=== PATIENT | male | born 1960 | race Hispanic/Latino ===

== ENCOUNTER 2017-03-20 16:32 | Outpatient (CLI) | payer OTHER ==
[2017-03-20 17:10] LABS: Blood Urea Nitrogen 15 mg/dL (9-20)
[2017-03-20] MEDS ORDERED: NACL ONE (18:34)
--- NOTE | 2017-03-20 19:28 | Cat Scan Report ---
FINAL REPORT EXAM: CT CHEST WO CON HISTORY: 6mm nodule on upper lobe TECHNIQUE: Standard unenhanced CT of the chest at 2.5 mm axial increments. Coronal and sagittal reconstruction was also obtained. Contrast: Oral contrast is noted within loops of the upper abdomen PRIORS: None. FINDINGS: In the left upper lobe, there are several pleural based plaques anterior and laterally in position. Only 1 of these has a small area of calcification within it. There are also a few smaller thinner plaques along the posterior aspect of the left base and along the left hemidiaphragm. Possibility of asbestos exposure should be considered and is most likely given the positioning of the plaques. However, due to the lack of calcification, other etiologies including neoplasm are not excluded entirely. There is a 5.5 mm uncalcified right middle lobe nodule (axial image 49) identified along the minor fissure anteriorly, likely a small fissural lymph node. Otherwise, the lung parenchyma are expanded and clear with no evidence for parenchymal infiltrates, vascular congestion, pleural effusion, or pneumothorax. There is no evidence for mediastinal, hilar, or axillary adenopathy. The esophagus is collapsed. The trachea is midline. Cardiovascular structures are within normal limits. Cardiac size and aorta are normal. Images through the lung bases include upper abdomen which show a low-density 3.6 x 3.1 cm cyst in the lower pole right kidney. There is a smaller adjacent low-density cyst in the midpole of the right kidney. This latter cysts contains focal calcification along the wall. Gallbladder has been surgically removed. Bony structures show no focal abnormalities. No evidence for bony fracture is seen. IMPRESSION: 1. no acute abnormality identified in the chest. 2. Uncalcified nodule in the right middle lobe along the anterior minor fissure. This is likely a small fissural lymph node. 3. Numerous pleural based plaques in the left upper and lower lobes and along the left hemidiaphragm. Most of these are uncalcified. Given the distribution, findings are most typical of asbestos exposure. However, due to the lack of calcification, other etiologies including mesothelial a are not excluded. A PET scan may be of further help to determine hypermetabolic activity within these plaques. 4. Low-density cysts in the right kidney
--- NOTE | 2017-03-20 19:47 | Cat Scan Report ---
FINAL REPORT EXAM: CT ABDOMEN PELVIS W CON HISTORY: Abdominal pain TECHNIQUE: Standard enhanced CT of the abdomen and pelvis. Delayed images through the kidneys and bladder were obtained. Coronal and sagittal reconstruction was also performed. Contrast: 100 mL Omnipaque 300 given IV. Oral contrast given PRIORS: CT chest 03/20/2017 FINDINGS: Within the abdomen, the liver, spleen, pancreas, gallbladder, adrenal glands, and left kidney are unremarkable. There is a 3.3 x 2.9 cm low-density cyst in the lower pole right kidney. 1.7 x 2.0 cm cyst in the midpole right kidney is seen. On the prior CT chest, the smaller cyst has focal punctate calcification along the wall. Neither of these cysts change density compared to the previous unenhanced CT chest. Therefore, these are likely benign. No evidence for retroperitoneal or pelvic lymphadenopathy is seen. The bowel loops have normal caliber. No soft tissue mass, fluid collection, inflammatory change, or free air is seen within the abdomen or pelvis. There is ventral hernia mesh over the lower abdomen and pelvis anteriorly. Within the pelvis, the bladder is collapsed. The prostate is normal. No evidence for mass or lymphadenopathy is seen in the pelvis. Images through the upper abdomen include the lung bases which are expanded and clear. Calcified pleural plaques along the left hemidiaphragm are noted suggesting asbestos exposure. Bony structures show no focal abnormalities. 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 Degenerative disc changes throughout the lumbar spine are noted. IMPRESSION: 1. no acute intra-abdominal process noted. 2. two cysts in the right kidney which are nonenhancing and low in density. Findings suggest benign etiologies. 3. Calcified pleural plaque formation on left hemidiaphragm suggesting asbestos exposure 4. Prior ventral hernia mesh repair over the lower abdomen and pelvis anteriorly.
== END 2017-03-20 16:33 | disposition home or self-care (01) ==
LOC: CT 16:32
PROVIDERS: ATTEND Internal Medicine Endocrinology, Diabetes & Metabolism
DX: N28.1 Cyst of kidney, acquired (principal); R91.1 Solitary pulmonary nodule; R91.8 Other nonspecific abnormal finding of lung field; K43.9 Ventral hernia without obstruction or gangrene; M47.896 Other spondylosis, lumbar region; J92.9 Pleural plaque without asbestos; J98.4 Other disorders of lung; Z90.49 Acquired absence of other specified parts of digestive tract
CPT/HCPCS: 36415; 71250; 74177; 82565; 84520; Q9967